=== PATIENT | female | born 1990 | race Caucasian/White ===

== ENCOUNTER 2020-12-31 13:28 | Outpatient (CLI) | payer OTHER | END 2020-12-31 13:29 | disposition home or self-care (01) | LOC: CSHMRI 13:28 | PROVIDERS: ATTEND Orthopaedic Surgery Hand Surgery | DX: S63.591A Other specified sprain of right wrist, initial encounter (principal); Z96.698 Presence of other orthopedic joint implants; M65.841 Other synovitis and tenosynovitis, right hand; M62.89 Other specified disorders of muscle; M25.839 Other specified joint disorders, unspecified wrist ==